=== PATIENT | female | born 1985 | race African-American/Black ===

== ENCOUNTER 2018-05-15 06:29 | Emergency (ER) | payer OTHER ==
[~2018-05-15] VITALS: Ht 170.2 cm; Wt 99.8 kg
[2018-05-15] MEDS ORDERED: KETOROLAC TROMETHAMINE 60 MG/2 ML VIAL ONE (06:45)
[2018-05-15 06:58] VITALS: BP 138/77
[2018-05-15] MEDS ORDERED: KETOROLAC TROMETHAMINE 60 MG/2 ML VIAL IM ONE (07:00)
[2018-05-15] MEDS ORDERED: HYDROCODONE/APAP 10MG-325MG TAB PO ONE (07:00)
== END 2018-05-15 07:13 | disposition home or self-care (01) ==
LOC: ER 06:29
DX: K08.89 Other specified disorders of teeth and supporting structures (principal); K02.9 Dental caries, unspecified
CPT/HCPCS: 99283; J1885